=== PATIENT | female | born 1935 | race Caucasian/White ===

== ENCOUNTER 2018-07-14 19:19 | Emergency (ER) | payer MEDICAID ==
[~2018-07-14] VITALS: Ht 162.6 cm; Wt 95.0 kg
[~2018-07-14 19:19] MED LIST: ACET-2178 PO; AMLO10TA4 PO; ASPI-1159 PO; FURO40TA5 PO; GABA-529 PO; LOPE2TAB PO; SOTA80TA PO
[2018-07-14 19:22] VITALS: BP 145/98
== END 2018-07-15 | disposition left against medical advice (07) ==
LOC: ER 19:19
DX: Z53.21 Procedure and treatment not carried out due to patient leaving prior to being seen by health care provider (principal); E11.9 Type 2 diabetes mellitus without complications; I10 Essential (primary) hypertension

== ENCOUNTER 2018-07-15 13:36 | Emergency (ER) | payer MEDICAID ==
[~2018-07-15] VITALS: Ht 154.9 cm; Wt 96.0 kg
[2018-07-15 22:04] LABS: BASOPHILS % 0.5 % (0.0-2.0); EOSINOPHILS % 1.4 % (0.0-5.0); HEMATOCRIT. 34.5 % (36.0-48.0); HEMOGLOBIN. 11.1 g/dL (12.0-16.0); LYMPHOCYTES % 12.1 % (20.0-50.0); MEAN CORPUSCULAR HEMOGLOBIN 29.4 pg (28.0-32.0); MEAN CORPUSCULAR VOLUME 91.7 fL (81.0-99.0); MEAN PLATELET VOLUME 8.3 fl (7.4-10.4); PLATELET 210 x1000/uL (130-400); RED BLOOD CELL COUNT 3.76 mill/uL (4.2-5.4); RED CELL DISTRIBUTION WIDTH 13.8 % (11.6-14.6)
[2018-07-15 22:09] LABS: CHLORIDE 106 mEq/L (98-107)
[2018-07-15 22:12] LABS: PROTHROMBIN TIME 10.3 sec (9.1-11.1)
[2018-07-15] MEDS ORDERED: TRAMADOL 50MG TABLET PO ONE (22:45)
[2018-07-15 23:36] VITALS: BP 130/55
== END 2018-07-16 00:05 | disposition home or self-care (01) ==
LOC: ER 13:36
DX: M79.662 Pain in left lower leg (principal); M17.12 Unilateral primary osteoarthritis, left knee; I10 Essential (primary) hypertension; I50.9 Heart failure, unspecified; Z88.0 Allergy status to penicillin; Z79.82 Long term (current) use of aspirin; Z98.890 Other specified postprocedural states
CPT/HCPCS: 36415; 73590; 93971; 99284

== ENCOUNTER 2018-07-25 06:54 | Inpatient (IN) | payer MEDICAID ==
[~2018-07-25] VITALS: Ht 157.5 cm; Wt 102.2 kg
[2018-07-25 07:26] LABS: CHLORIDE 107 mEq/L (98-107)
[2018-07-25 07:27] LABS: BASOPHILS % 0.7 % (0.0-2.0); EOSINOPHILS % 2.5 % (0.0-5.0); HEMATOCRIT. 36.4 % (36.0-48.0); HEMOGLOBIN. 11.5 g/dL (12.0-16.0); LYMPHOCYTES % 11.9 % (20.0-50.0); MEAN CORPUSCULAR HEMOGLOBIN 29.1 pg (28.0-32.0); MEAN CORPUSCULAR VOLUME 91.8 fL (81.0-99.0); MEAN PLATELET VOLUME 8.3 fl (7.4-10.4); MONOCYTES % 10.8 % (2.0-8.0); NEUTROPHILS % 74.1 % (40.0-76.0); PLATELET 214 x1000/uL (130-400); RED BLOOD CELL COUNT 3.96 mill/uL (4.2-5.4); RED CELL DISTRIBUTION WIDTH 13.9 % (11.6-14.6)
[2018-07-25 07:28] LABS: INR 1.1; PROTHROMBIN TIME 10.7 sec (9.1-11.1)
[2018-07-25 07:30] LABS: ETHANOL BLOOD < 10 mg/dL
[2018-07-25 07:33] LABS: LDL CHOLESTEROL 97 mg/dL (5-100)
[2018-07-25 07:35] LABS: CREATINE KINASE 114 IU/L (26-192)
[2018-07-25] MEDS ORDERED: SODIUM CHLORIDE 0.9% 1,000 ML IV ONE (09:22)
[2018-07-25] MEDS ORDERED: ASPIRIN 300MG SUPP PR ONE (09:45)
[2018-07-25 10:43] LABS: CLARITY URINE CLEAR (CLEAR); COLOR URINE YELLOW (YELLOW); KETONES URINE NEGATIVE (NEGATIVE); LEUKOCYTE ESTERASE URINE TRACE (NEGATIVE); NITRITE URINE NEGATIVE (NEGATIVE); OCCULT BLOOD URINE NEGATIVE (NEGATIVE); PROTEIN URINE NEGATIVE (NEGATIVE); SPECIFIC GRAVITY URINE 1.024 (1.005-1.030); UROBILINOGEN URINE 0.2 E.U./dL (0.2-1.0)
[2018-07-25 11:08] LABS: *AMPHETAMINES SCREEN URINE NEGATIVE (NEGATIVE); *BARBITURATES SCREEN URINE NEGATIVE (NEGATIVE); *BENZODIAZEPINES SCREEN URINE NEGATIVE (NEGATIVE); *COCAINE SCREEN URINE NEGATIVE (NEGATIVE); METHADONE URINE SCREEN NEGATIVE (NEGATIVE); OPIATES URINE SCREEN NEGATIVE (NEGATIVE)
[2018-07-25 11:09] LABS: CANNABINOID URINE SCREEN NEGATIVE (NEGATIVE); PHENCYCLIDINE URINE SCREEN NEGATIVE (NEGATIVE)
[2018-07-25] MEDS ORDERED: LEVOFLOXACIN 500MG PREMIX 100 ML IV ONE (12:00)
[2018-07-25] MEDS ORDERED: ONDANSETRON HCL 4MG/2ML INJ IV PRN (12:00)
[2018-07-25] MEDS ORDERED: DILTIAZEM HCL 5MG/ML 5ML VIAL IV ONE (12:00)
[2018-07-25] MEDS: DEXT 5%/0.45% NACL 1000ML 1,000 ML IV SCH (16:45)
[2018-07-25] MEDS: MORPHINE SULFATE 4 MG/ML CPJ (NOT FOR IM USE) IV PRN (21:51)
[2018-07-26] VITALS (17 sets, daily range): BP systolic 115–159; BP diastolic 56–116
[2018-07-26] MEDS: MORPHINE SULFATE 4 MG/ML CPJ (NOT FOR IM USE) IV PRN ×2 (01:41→09:00)
[2018-07-26 06:15] LABS: BASOPHILS % 0.8 % (0.0-2.0); EOSINOPHILS % 2.5 % (0.0-5.0); HEMATOCRIT. 35.5 % (36.0-48.0); HEMOGLOBIN. 11.2 g/dL (12.0-16.0); LYMPHOCYTES % 13.4 % (20.0-50.0); MEAN CORPUSCULAR HEMOGLOBIN 28.9 pg (28.0-32.0); MEAN CORPUSCULAR VOLUME 91.6 fL (81.0-99.0); MEAN PLATELET VOLUME 7.8 fl (7.4-10.4); MONOCYTES % 11.5 % (2.0-8.0); NEUTROPHILS % 71.8 % (40.0-76.0); PLATELET 196 x1000/uL (130-400); RED BLOOD CELL COUNT 3.87 mill/uL (4.2-5.4)
[2018-07-26] MEDS ORDERED: DILTIAZEM HCL 5MG/ML 5ML VIAL IV NR ×2 (11:56→16:30)
[2018-07-26] MEDS: ENOXAPARIN 30MG/0.3ML SYR SUBCUT SCH ×2 (12:06→22:43)
[2018-07-26] MEDS ORDERED: MAGNESIUM 2 G PREMIX 50 ML IV SCH (13:00)
[2018-07-26] MEDS: DEXT 5%/0.45% NACL 1000ML 1,000 ML IV SCH (14:18)
[2018-07-26] MEDS: ASPIRIN 81MG TABLET PO SCH (14:18)
[2018-07-26] MEDS: SOTALOL HCL 80MG TABLET PO SCH ×2 (14:19→21:49)
[2018-07-26] MEDS ORDERED: CARB200T6 MT (16:26)
[2018-07-26] MEDS ORDERED: ALD2525 MT (16:26)
[2018-07-26] MEDS ORDERED: DILTIAZEM HCL 125 MG in DEXT 5% WATER 100 ML IV ONE (17:00)
[2018-07-26] MEDS: CLOPIDOGREL 75MG TABLET PO SCH (17:45)
[2018-07-26] MEDS: ATORVASTATIN CALCIUM 40MG TABLET PO SCH (21:49)
[2018-07-27] VITALS (17 sets, daily range): BP systolic 112–143; BP diastolic 34–82
[2018-07-27] MEDS: DEXT 5%/0.45% NACL 1000ML 1,000 ML IV SCH ×2 (04:23→16:47)
[2018-07-27] MEDS: SOTALOL HCL 80MG TABLET PO SCH ×3 (05:51→22:21)
[2018-07-27 07:04] LABS: BASOPHILS % 0.5 % (0.0-2.0); EOSINOPHILS % 1.8 % (0.0-5.0); HEMATOCRIT. 34.8 % (36.0-48.0); HEMOGLOBIN. 11.3 g/dL (12.0-16.0); LYMPHOCYTES % 9.8 % (20.0-50.0); MEAN CORPUSCULAR HEMOGLOBIN 29.5 pg (28.0-32.0); MEAN CORPUSCULAR VOLUME 91.4 fL (81.0-99.0); MEAN PLATELET VOLUME 8.5 fl (7.4-10.4); MONOCYTES % 14.1 % (2.0-8.0); NEUTROPHILS % 73.8 % (40.0-76.0); PLATELET 178 x1000/uL (130-400); RED BLOOD CELL COUNT 3.81 mill/uL (4.2-5.4); RED CELL DISTRIBUTION WIDTH 14.1 % (11.6-14.6)
[2018-07-27] MEDS: CLOPIDOGREL 75MG TABLET PO SCH (08:20)
[2018-07-27] MEDS: ASPIRIN 81MG TABLET PO SCH (08:20)
[2018-07-27] MEDS: ENOXAPARIN 30MG/0.3ML SYR SUBCUT SCH ×2 (08:20→22:20)
[2018-07-27] MEDS ORDERED: LEVOFLOXACIN 500MG PREMIX 100 ML IV SCH (08:45)
[2018-07-27] MEDS: LEVOFLOXACIN 250MG PREMIX 50 ML IV SCH (11:04)
[2018-07-27] MEDS: ACETAMINOPHEN 325MG TABLET PO PRN ×2 (11:24→22:25)
[2018-07-27] MEDS: DILTIAZEM HCL 30MG TABLET NG SCH ×2 (12:16→17:59)
[2018-07-27] MEDS: GABAPENTIN 100MG CAPSULE PO SCH (17:57)
[2018-07-27] MEDS: ATORVASTATIN CALCIUM 40MG TABLET PO SCH (22:20)
[2018-07-28] VITALS (15 sets, daily range): BP systolic 101–151; BP diastolic 48–83
[2018-07-28] MEDS: DILTIAZEM HCL 30MG TABLET NG SCH ×4 (00:39→21:41)
[2018-07-28 06:44] LABS: CHLORIDE 107 mEq/L (98-107)
[2018-07-28] MEDS: SOTALOL HCL 80MG TABLET PO SCH ×3 (06:53→21:40)
[2018-07-28] MEDS: DEXT 5%/0.45% NACL 1000ML 1,000 ML IV SCH ×2 (07:00→20:10)
[2018-07-28 07:01] LABS: BASOPHILS % 0.2 % (0.0-2.0); EOSINOPHILS % 3.9 % (0.0-5.0); HEMATOCRIT. 35.4 % (36.0-48.0); HEMOGLOBIN. 11.4 g/dL (12.0-16.0); LYMPHOCYTES % 8.3 % (20.0-50.0); MEAN CORPUSCULAR HEMOGLOBIN 29.3 pg (28.0-32.0); MEAN CORPUSCULAR VOLUME 90.7 fL (81.0-99.0); MEAN PLATELET VOLUME 8.3 fl (7.4-10.4); MONOCYTES % 13.7 % (2.0-8.0); NEUTROPHILS % 73.9 % (40.0-76.0); PLATELET 177 x1000/uL (130-400); RED CELL DISTRIBUTION WIDTH 13.9 % (11.6-14.6)
[2018-07-28] MEDS: ASPIRIN 81MG TABLET PO SCH (09:38)
[2018-07-28] MEDS: LEVOFLOXACIN 250MG PREMIX 50 ML IV SCH (09:38)
[2018-07-28] MEDS: CLOPIDOGREL 75MG TABLET PO SCH (09:38)
[2018-07-28] MEDS: ENOXAPARIN 30MG/0.3ML SYR SUBCUT SCH ×2 (09:38→21:41)
[2018-07-28] MEDS: GABAPENTIN 100MG CAPSULE PO SCH ×3 (09:38→16:22)
[2018-07-28] MEDS: ATORVASTATIN CALCIUM 40MG TABLET PO SCH (21:40)
[2018-07-29] VITALS (21 sets, daily range): BP systolic 117–156; BP diastolic 49–101
[2018-07-29] MEDS: ACETAMINOPHEN 650MG/20.3ML UDC NG PRN ×2 (00:42→17:46)
[2018-07-29] MEDS: DILTIAZEM HCL 30MG TABLET NG SCH ×3 (06:14→21:23)
[2018-07-29 06:38] LABS: BASOPHILS % 0.4 % (0.0-2.0); EOSINOPHILS % 5.7 % (0.0-5.0); HEMATOCRIT. 36.2 % (36.0-48.0); HEMOGLOBIN. 11.8 g/dL (12.0-16.0); LYMPHOCYTES % 8.5 % (20.0-50.0); MEAN CORPUSCULAR VOLUME 92.4 fL (81.0-99.0); MONOCYTES % 11.7 % (2.0-8.0); NEUTROPHILS % 73.7 % (40.0-76.0); RED BLOOD CELL COUNT 3.92 mill/uL (4.2-5.4); RED CELL DISTRIBUTION WIDTH 14.2 % (11.6-14.6)
[2018-07-29 07:32] LABS: CHLORIDE 108 mEq/L (98-107)
[2018-07-29 08:35] LABS: PLATELET 132 x1000/uL (130-400)
[2018-07-29] MEDS: ENOXAPARIN 30MG/0.3ML SYR SUBCUT SCH ×2 (08:39→21:31)
[2018-07-29] MEDS: SOTALOL HCL 80MG TABLET PO SCH ×2 (08:43→21:23)
[2018-07-29] MEDS: CLOPIDOGREL 75MG TABLET PO SCH (08:43)
[2018-07-29] MEDS: GABAPENTIN 100MG CAPSULE PO SCH ×3 (08:43→17:16)
[2018-07-29] MEDS: ASPIRIN 81MG TABLET PO SCH (08:43)
[2018-07-29] MEDS: DEXT 5%/0.45% NACL 1000ML 1,000 ML IV SCH ×2 (08:44→21:34)
[2018-07-29] MEDS: LEVOFLOXACIN 250MG TABLET PO SCH (11:23)
[2018-07-29] MEDS: ATORVASTATIN CALCIUM 40MG TABLET PO SCH (21:22)
[2018-07-30] VITALS (12 sets, daily range): BP systolic 105–157; BP diastolic 52–87
[2018-07-30] MEDS: ACETAMINOPHEN 650MG/20.3ML UDC NG PRN ×2 (01:33→22:52)
[2018-07-30 05:41] LABS: BASOPHILS % 0.5 % (0.0-2.0); EOSINOPHILS % 8.4 % (0.0-5.0); HEMATOCRIT. 34.5 % (36.0-48.0); HEMOGLOBIN. 11.1 g/dL (12.0-16.0); MEAN CORPUSCULAR HEMOGLOBIN 29.5 pg (28.0-32.0); MEAN CORPUSCULAR VOLUME 91.9 fL (81.0-99.0); MEAN PLATELET VOLUME 8.6 fl (7.4-10.4); MONOCYTES % 12.1 % (2.0-8.0); PLATELET 199 x1000/uL (130-400); RED BLOOD CELL COUNT 3.75 mill/uL (4.2-5.4); RED CELL DISTRIBUTION WIDTH 14.1 % (11.6-14.6)
[2018-07-30 06:02] LABS: CHLORIDE 108 mEq/L (98-107)
[2018-07-30] MEDS: DILTIAZEM HCL 30MG TABLET NG SCH ×3 (06:03→22:57)
[2018-07-30] MEDS: CLOPIDOGREL 75MG TABLET PO SCH (09:05)
[2018-07-30] MEDS: ASPIRIN 81MG TABLET PO SCH (09:05)
[2018-07-30] MEDS: SOTALOL HCL 80MG TABLET PO SCH ×2 (09:06→22:55)
[2018-07-30] MEDS: GABAPENTIN 100MG CAPSULE PO SCH ×3 (09:06→17:10)
[2018-07-30] MEDS: ENOXAPARIN 30MG/0.3ML SYR SUBCUT SCH (09:06)
[2018-07-30] MEDS: LEVOFLOXACIN 250MG TABLET PO SCH (11:00)
[2018-07-30] MEDS: DEXT 5%/0.45% NACL 1000ML 1,000 ML IV SCH (12:54)
[2018-07-30] MEDS: ZINC SULFATE 220 MG ( 50 ) CAPSULE NG SCH (18:59)
[2018-07-30] MEDS: ATORVASTATIN CALCIUM 40MG TABLET PO SCH (22:53)
[2018-07-30] MEDS: MULTIVITAMINS,THER W-MINERALS TABLET NG SCH (22:53)
[2018-07-30] MEDS: ASCORBIC ACID 250 MG TABLET NG SCH (22:56)
[2018-07-30] MEDS: PANTOPRAZOLE SODIUM 40 MG/VIAL IV SCH (23:16)
[2018-07-31] VITALS (10 sets, daily range): BP systolic 90–151; BP diastolic 51–97
[2018-07-31] MEDS: DEXT 5%/0.45% NACL 1000ML 1,000 ML IV SCH ×2 (02:36→14:35)
[2018-07-31] MEDS: DILTIAZEM HCL 30MG TABLET NG SCH ×4 (05:37→21:08)
[2018-07-31 06:31] LABS: PARTIAL THROMBOPLASTIN TIME 27.9 sec (23.4-31.0); PROTHROMBIN TIME 10.5 sec (9.1-11.1)
[2018-07-31 06:33] LABS: BASOPHILS % 0.4 % (0.0-2.0); EOSINOPHILS % 8.4 % (0.0-5.0); HEMATOCRIT. 35.8 % (36.0-48.0); HEMOGLOBIN. 11.4 g/dL (12.0-16.0); LYMPHOCYTES % 11.7 % (20.0-50.0); MEAN CORPUSCULAR HEMOGLOBIN 29.4 pg (28.0-32.0); MEAN CORPUSCULAR VOLUME 92.6 fL (81.0-99.0); MEAN PLATELET VOLUME 8.7 fl (7.4-10.4); MONOCYTES % 12.1 % (2.0-8.0); NEUTROPHILS % 67.4 % (40.0-76.0); PLATELET 217 x1000/uL (130-400); RED BLOOD CELL COUNT 3.86 mill/uL (4.2-5.4); RED CELL DISTRIBUTION WIDTH 14.7 % (11.6-14.6)
[2018-07-31] MEDS: PANTOPRAZOLE SODIUM 40 MG/VIAL IV SCH (08:15)
[2018-07-31] MEDS: GABAPENTIN 100MG CAPSULE PO SCH ×3 (09:00→16:41)
[2018-07-31] MEDS: SOTALOL HCL 80MG TABLET PO SCH ×2 (09:00→20:24)
[2018-07-31] MEDS: ASCORBIC ACID 250 MG TABLET NG SCH ×2 (09:00→20:24)
[2018-07-31] MEDS: ZINC SULFATE 220 MG ( 50 ) CAPSULE NG SCH (09:00)
[2018-07-31] MEDS: MULTIVITAMINS,THER W-MINERALS TABLET NG SCH (09:00)
[2018-07-31] MEDS ORDERED: LEVOFLOXACIN 500MG PREMIX 100 ML IV NR (10:00)
[2018-07-31] MEDS ORDERED: SIMETHICONE 40 MG/0.6 ML 30ML ONE (11:32)
[2018-07-31] MEDS ORDERED: MIDAZOLAM HCL 5 MG/5 ML VIAL ONE (12:59)
[2018-07-31] MEDS ORDERED: FENTANYL CITRATE/PF 50MCG/ML 2ML VIAL ONE (12:59)
[2018-07-31] MEDS ORDERED: MIDAZOLAM HCL 2 MG/2 ML VIAL IV PRN (13:00)
[2018-07-31] MEDS ORDERED: FENTANYL CITRATE/PF 50MCG/ML 2ML VIAL IV PRN (13:01)
[2018-07-31] MEDS ORDERED: MIDAZOLAM HCL 5 MG/5 ML VIAL IV PRN (14:16)
[2018-07-31] MEDS ORDERED: SODIUM CHLORIDE 0.9% 10ML VIAL ONE (14:40)
[2018-07-31] MEDS ORDERED: DILTIAZEM HCL 5MG/ML 5ML VIAL IV PRN (18:45)
[2018-07-31] MEDS: ATORVASTATIN CALCIUM 40MG TABLET PO SCH (20:24)
[2018-07-31] MEDS: ACETAMINOPHEN 650MG/20.3ML UDC NG PRN (20:37)
[2018-08-01] VITALS (12 sets, daily range): BP systolic 106–160; BP diastolic 48–99
[2018-08-01] MEDS: METOCLOPRAMIDE HCL 10MG/2ML VIAL IV SCH ×5 (00:18→23:33)
[2018-08-01] MEDS: DEXT 5%/0.45% NACL 1000ML 1,000 ML IV SCH ×2 (03:56→17:25)
[2018-08-01] MEDS: LANSOPRAZOLE 30MG DR CAPSULE GT SCH (06:19)
[2018-08-01] MEDS: DILTIAZEM HCL 30MG TABLET NG SCH ×3 (06:21→21:55)
[2018-08-01 06:58] LABS: CHLORIDE 103 mEq/L (98-107)
[2018-08-01 07:03] LABS: HEMATOCRIT. 36.7 % (36.0-48.0); HEMOGLOBIN. 11.5 g/dL (12.0-16.0); MEAN CORPUSCULAR HEMOGLOBIN 28.7 pg (28.0-32.0); MEAN CORPUSCULAR VOLUME 91.6 fL (81.0-99.0); MEAN PLATELET VOLUME 8.5 fl (7.4-10.4); PLATELET 218 x1000/uL (130-400); RED BLOOD CELL COUNT 4.01 mill/uL (4.2-5.4); RED CELL DISTRIBUTION WIDTH 14.2 % (11.6-14.6)
[2018-08-01] MEDS: ZINC SULFATE 220 MG ( 50 ) CAPSULE NG SCH (08:32)
[2018-08-01] MEDS: ASCORBIC ACID 250 MG TABLET NG SCH ×2 (08:33→21:54)
[2018-08-01] MEDS: GABAPENTIN 100MG CAPSULE PO SCH ×3 (08:33→17:24)
[2018-08-01] MEDS: MULTIVITAMINS,THER W-MINERALS TABLET NG SCH (08:33)
[2018-08-01] MEDS: SOTALOL HCL 80MG TABLET PO SCH ×2 (08:34→21:54)
[2018-08-01] MEDS ORDERED: ASPIRIN 81MG TABLET GT SCH (09:00)
[2018-08-01] MEDS ORDERED: OMEPRAZOLE 20MG CAPSULE EXTENDED RELEASE PO SCH (09:00)
[2018-08-01] MEDS ORDERED: CLOPIDOGREL 75MG TABLET GT SCH (09:00)
[2018-08-01] MEDS: LEVOFLOXACIN 250MG TABLET PO SCH (11:51)
[2018-08-01] MEDS: APIXABAN 5 MG TABLET PO SCH (17:24)
[2018-08-01] MEDS: ACETAMINOPHEN 650MG/20.3ML UDC NG PRN (17:25)
[2018-08-01] MEDS: ATORVASTATIN CALCIUM 40MG TABLET PO SCH (21:54)
[2018-08-02] VITALS (12 sets, daily range): BP systolic 107–141; BP diastolic 52–83
[2018-08-02] MEDS: LANSOPRAZOLE 30MG DR CAPSULE GT SCH (05:19)
[2018-08-02] MEDS: DEXT 5%/0.45% NACL 1000ML 1,000 ML IV SCH ×2 (05:19→11:49)
[2018-08-02] MEDS: METOCLOPRAMIDE HCL 10MG/2ML VIAL IV SCH ×3 (05:19→18:08)
[2018-08-02] MEDS: DILTIAZEM HCL 30MG TABLET NG SCH ×3 (05:19→21:16)
[2018-08-02] MEDS: ACETAMINOPHEN 650MG/20.3ML UDC NG PRN (06:05)
[2018-08-02 07:39] LABS: BASOPHILS % 0.3 % (0.0-2.0); EOSINOPHILS % 6.6 % (0.0-5.0); HEMATOCRIT. 35.3 % (36.0-48.0); LYMPHOCYTES % 7.2 % (20.0-50.0); MEAN CORPUSCULAR VOLUME 92.6 fL (81.0-99.0); MEAN PLATELET VOLUME 8.5 fl (7.4-10.4); MONOCYTES % 12.3 % (2.0-8.0); NEUTROPHILS % 73.6 % (40.0-76.0); PLATELET 209 x1000/uL (130-400); RED BLOOD CELL COUNT 3.81 mill/uL (4.2-5.4); RED CELL DISTRIBUTION WIDTH 14.1 % (11.6-14.6)
[2018-08-02] MEDS: ASCORBIC ACID 250 MG TABLET NG SCH ×2 (08:18→21:15)
[2018-08-02] MEDS: MULTIVITAMINS,THER W-MINERALS TABLET NG SCH (08:18)
[2018-08-02] MEDS: ZINC SULFATE 220 MG ( 50 ) CAPSULE NG SCH (08:18)
[2018-08-02] MEDS: GABAPENTIN 100MG CAPSULE PO SCH ×3 (08:18→18:08)
[2018-08-02] MEDS: APIXABAN 5 MG TABLET PO SCH ×2 (08:18→18:08)
[2018-08-02] MEDS: SOTALOL HCL 80MG TABLET PO SCH ×2 (08:19→21:15)
[2018-08-02 10:11] LABS: PLATELET ESTIMATE NORMAL
[2018-08-02] MEDS: LEVOFLOXACIN 250MG TABLET PO SCH (11:21)
[2018-08-02] MEDS: ATORVASTATIN CALCIUM 40MG TABLET PO SCH (21:14)
[2018-08-03] VITALS (12 sets, daily range): BP systolic 107–150; BP diastolic 63–76
[2018-08-03] MEDS: DEXT 5%/0.45% NACL 1000ML 1,000 ML IV SCH (02:10)
[2018-08-03] MEDS: DILTIAZEM HCL 30MG TABLET NG SCH ×3 (05:59→21:15)
[2018-08-03 07:05] LABS: BASOPHILS % 0.3 % (0.0-2.0); EOSINOPHILS % 7.3 % (0.0-5.0); HEMATOCRIT. 36.1 % (36.0-48.0); HEMOGLOBIN. 11.3 g/dL (12.0-16.0); LYMPHOCYTES % 8.6 % (20.0-50.0); MEAN CORPUSCULAR VOLUME 92.5 fL (81.0-99.0); MEAN PLATELET VOLUME 8.7 fl (7.4-10.4); MONOCYTES % 11.8 % (2.0-8.0); PLATELET 234 x1000/uL (130-400); RED BLOOD CELL COUNT 3.91 mill/uL (4.2-5.4); RED CELL DISTRIBUTION WIDTH 14.5 % (11.6-14.6)
[2018-08-03 07:22] LABS: CHLORIDE 102 mEq/L (98-107)
[2018-08-03] MEDS: APIXABAN 5 MG TABLET PO SCH ×2 (08:07→16:33)
[2018-08-03] MEDS: ZINC SULFATE 220 MG ( 50 ) CAPSULE NG SCH (08:07)
[2018-08-03] MEDS: MULTIVITAMINS,THER W-MINERALS TABLET NG SCH (08:07)
[2018-08-03] MEDS: GABAPENTIN 100MG CAPSULE PO SCH ×3 (08:07→16:33)
[2018-08-03] MEDS: FAMOTIDINE 20MG TABLET GT SCH (08:07)
[2018-08-03] MEDS: ASCORBIC ACID 250 MG TABLET NG SCH ×2 (08:07→21:15)
[2018-08-03] MEDS: SOTALOL HCL 80MG TABLET PO SCH ×2 (08:07→21:16)
[2018-08-03] MEDS: LEVOFLOXACIN 250MG TABLET PO SCH (10:20)
[2018-08-03] MEDS: ATORVASTATIN CALCIUM 40MG TABLET PO SCH (21:16)
[2018-08-04] VITALS (13 sets, daily range): BP systolic 110–141; BP diastolic 45–92
[2018-08-04] MEDS: DILTIAZEM HCL 30MG TABLET NG SCH ×3 (05:53→22:04)
[2018-08-04 07:34] LABS: BASOPHILS % 0.4 % (0.0-2.0); EOSINOPHILS % 9.1 % (0.0-5.0); HEMATOCRIT. 34.2 % (36.0-48.0); HEMOGLOBIN. 10.8 g/dL (12.0-16.0); LYMPHOCYTES % 12.7 % (20.0-50.0); MEAN CORPUSCULAR HEMOGLOBIN 29.2 pg (28.0-32.0); MEAN PLATELET VOLUME 8.6 fl (7.4-10.4); NEUTROPHILS % 65.8 % (40.0-76.0); PLATELET 244 x1000/uL (130-400); RED BLOOD CELL COUNT 3.72 mill/uL (4.2-5.4); RED CELL DISTRIBUTION WIDTH 14.4 % (11.6-14.6)
[2018-08-04] MEDS: ASCORBIC ACID 250 MG TABLET NG SCH ×2 (08:33→22:03)
[2018-08-04] MEDS: ZINC SULFATE 220 MG ( 50 ) CAPSULE NG SCH (08:33)
[2018-08-04] MEDS: MULTIVITAMINS,THER W-MINERALS TABLET NG SCH (08:33)
[2018-08-04] MEDS: GABAPENTIN 100MG CAPSULE PO SCH ×3 (08:34→16:00)
[2018-08-04] MEDS: APIXABAN 5 MG TABLET PO SCH ×2 (08:34→16:00)
[2018-08-04] MEDS: SOTALOL HCL 80MG TABLET PO SCH ×2 (08:34→22:05)
[2018-08-04] MEDS: FAMOTIDINE 20MG TABLET GT SCH (08:34)
[2018-08-04 09:50] LABS: CHLORIDE 103 mEq/L (98-107)
[2018-08-04] MEDS: ACETAMINOPHEN 325MG TABLET PO PRN (12:24)
[2018-08-04] MEDS: ATORVASTATIN CALCIUM 40MG TABLET PO SCH (22:03)
[2018-08-05] VITALS (12 sets, daily range): BP systolic 90–146; BP diastolic 53–80
[2018-08-05] MEDS: DILTIAZEM HCL 30MG TABLET NG SCH (06:05)
[2018-08-05 06:47] LABS: BASOPHILS % 0.5 % (0.0-2.0); EOSINOPHILS % 9.7 % (0.0-5.0); HEMATOCRIT. 36.5 % (36.0-48.0); HEMOGLOBIN. 11.8 g/dL (12.0-16.0); LYMPHOCYTES % 10.7 % (20.0-50.0); MEAN CORPUSCULAR HEMOGLOBIN 29.5 pg (28.0-32.0); MEAN CORPUSCULAR VOLUME 91.7 fL (81.0-99.0); MEAN PLATELET VOLUME 8.4 fl (7.4-10.4); MONOCYTES % 11.7 % (2.0-8.0); NEUTROPHILS % 67.4 % (40.0-76.0); PLATELET 275 x1000/uL (130-400); RED BLOOD CELL COUNT 3.98 mill/uL (4.2-5.4)
[2018-08-05] MEDS: GABAPENTIN 100MG CAPSULE PO SCH ×3 (08:14→17:02)
[2018-08-05] MEDS: FAMOTIDINE 20MG TABLET GT SCH (08:14)
[2018-08-05] MEDS: ZINC SULFATE 220 MG ( 50 ) CAPSULE NG SCH (08:14)
[2018-08-05] MEDS: MULTIVITAMINS,THER W-MINERALS TABLET NG SCH (08:14)
[2018-08-05] MEDS: APIXABAN 5 MG TABLET PO SCH ×2 (08:14→17:02)
[2018-08-05] MEDS: SOTALOL HCL 80MG TABLET PO SCH ×2 (08:15→22:25)
[2018-08-05] MEDS: ASCORBIC ACID 250 MG TABLET NG SCH ×2 (08:15→22:21)
[2018-08-05] MEDS ORDERED: SODIUM CHLORIDE 0.9% 500 ML IV ONE (11:15)
[2018-08-05] MEDS: DILTIAZEM HCL 60MG TABLET NG SCH ×2 (12:49→17:04)
[2018-08-05] MEDS: ATORVASTATIN CALCIUM 40MG TABLET PO SCH (22:21)
== END 2018-08-05 22:57 | DRG 45 ==
LOC: ER 06:54 → 3WST 10:01 → EDBEDREQTM 10:05 → EDBEDREQ 10:05 → ENRESERV 07-26 09:55
PROVIDERS: ADMIT Internal Medicine; ATTEND Internal Medicine
PROC: 0DH63UZ Insertion of Feeding Device into Stomach, Percutaneous Approach (ICD-10-PCS; principal; 2018-07-31)
PROC: 0DB68ZX Excision of Stomach, Via Natural or Artificial Opening Endoscopic, Diagnostic (ICD-10-PCS; 2018-07-31)
DX: I63.9 Cerebral infarction, unspecified (principal); N17.0 Acute kidney failure with tubular necrosis; J18.9 Pneumonia, unspecified organism; L89.310 Pressure ulcer of right buttock, unstageable; E46 Unspecified protein-calorie malnutrition; G81.91 Hemiplegia, unspecified affecting right dominant side; I11.0 Hypertensive heart disease with heart failure; I27.20 Pulmonary hypertension, unspecified; I50.9 Heart failure, unspecified; H53.461 Homonymous bilateral field defects, right side; R41.4 Neurologic neglect syndrome; I48.0 Paroxysmal atrial fibrillation; E78.5 Hyperlipidemia, unspecified; E66.9 Obesity, unspecified; R13.10 Dysphagia, unspecified; R47.01 Aphasia; D64.9 Anemia, unspecified; E11.9 Type 2 diabetes mellitus without complications; I25.10 Atherosclerotic heart disease of native coronary artery without angina pectoris; N39.0 Urinary tract infection, site not specified; R29.810 Facial weakness; E78.00 Pure hypercholesterolemia, unspecified; J44.9 Chronic obstructive pulmonary disease, unspecified; I48.1 Persistent atrial fibrillation; K29.60 Other gastritis without bleeding; M17.10 Unilateral primary osteoarthritis, unspecified knee; S51.811A Laceration without foreign body of right forearm, initial encounter; X58.XXXA Exposure to other specified factors, initial encounter; Y93.89 Activity, other specified; Y92.89 Other specified places as the place of occurrence of the external cause; Y99.8 Other external cause status; Z82.49 Family history of ischemic heart disease and other diseases of the circulatory system; Z88.0 Allergy status to penicillin; Z79.82 Long term (current) use of aspirin; Z79.899 Other long term (current) drug therapy; Z68.41 Body mass index [BMI] 40.0-44.9, adult
CPT/HCPCS: 36415; 70496; 70498; 70551; 71045; 80048; 80061; 80305; 82550; 83036; 83605; 83721; 83735; 84134; 84443; 84484; 87077; 87186; 88305; 88312; 88313; 92610; 93005; 93306; 93880; 96361; 96365; 96375; 97163; 97167; 97530; 99291; A6261; C1893; C9113; G0482; J1650; J1956; J2250; J2270; J2405; J2765; J3010; J3475; J3490; J7040; J7050; J7060